=== PATIENT | female | born 1990 ===

== ENCOUNTER 2020-09-05 18:18 | Emergency (ER) | payer SELFPAY ==
[~2020-09-05] VITALS: Ht 159 cm; Wt 81.8 kg
[2020-09-05 18:48] LABS: COLLECTION METHOD CLEAN CATCH
[2020-09-05 18:58] LABS: BASO # 0.1 (0.0-0.2); BASO % 0.4 % (0.0-2.0); EOS # 0.2 (0.0-0.7); EOS % 0.9 % (0-4.0); GRAN # 13.5 (1.4-6.5); GRAN % 75.6 % (42.2-75.2); HEMATOCRIT 37.9 % (37.0-47.0); HEMOGLOBIN 14.5 g/dl (12.5-16.0); LYMPH # 3.3 (1.2-3.4); LYMPH % 18.3 % (20.0-51.0); MEAN CELL VOLUME 87 fl (80.0-100.0); MEAN CORPUSCULAR HEMOGLOBIN 33 pg (27.0-31.0); MEAN CORPUSCULAR HGB CONC 38 g/dl (33.0-37.0); MEAN PLATELET VOLUME 9.4 fl (7.4-10.4); MONO # 0.8 (0.1-0.6); MONO % 4.3 % (1.7-9.3); PLATELET COUNT 353 K/mm3 (130-400); RED BLOOD COUNT 4.35 M/mm3 (4.10-5.30); REDCELL DISTRIBUTION WIDTH-CV 14.6 % (11.5-14.5)
[2020-09-05 19:04] LABS: MUCOUS Present /lpf; PH 6 (5-8); URINE APPEARANCE Cloudy; URINE BACTERIA Many /hpf; URINE BILIRUBIN Negative (NEGATIVE); URINE BLOOD Negative (NEGATIVE); URINE COLOR Yellow; URINE GLUCOSE Negative (NEGATIVE); URINE KETONE Negative (NEGATIVE); URINE LEUKOCYTE ESTERASE 1+ (NEGATIVE); URINE NITRATE Positive (NEGATIVE); URINE PROTEIN(semi-quant) 3+ (NEGATIVE); URINE UROBILINOGEN Negative (NEGATIVE)
[2020-09-05 19:08] LABS: CREATININE, serum 0.62 (0.52-1.25); POTASSIUM 3.8 mmol/L (3.4-5.0); TOTAL PROTEIN 8.3 gm/dL (6.4-8.2)
[2020-09-05] MEDS ORDERED: AMOXICILLIN 8751 TAB PO (20:54)
[2020-09-05 21:30] VITALS: TEMP 98
[2020-09-05 21:56] VITALS: BP 115/80; PULSE 110
[2020-09-07] MEDS ORDERED: CIPRO 500MG TA500 MG PO (15:43)
== END 2020-09-05 21:59 | disposition home or self-care (01) ==
LOC: COL.ER 18:18
PROVIDERS: Physician Assistant
DX: N12 Tubulo-interstitial nephritis, not specified as acute or chronic (principal); Z90.49 Acquired absence of other specified parts of digestive tract
CPT/HCPCS: J0696; J1885; J7030; Q9967